=== PATIENT | male | born 1955 | race Caucasian/White ===

== ENCOUNTER 2018-04-27 14:40 | Inpatient (IN) ==
[2018-04-27] MEDS ORDERED: NON-FORMULARY MEDICATION 1 EACH EACH (Oxycodone Hcl 10 MG) PO PRN (19:19)
[2018-04-27] MEDS: rOPINIRole 1 MG TABLET PO SCH (20:51)
[2018-04-27] MEDS: Gabapentin 300 MG CAPSULE PO SCH (20:51)
[2018-04-27] MEDS: traZODone 50 MG TABLET PO SCH (20:52)
[2018-04-28] MEDS: *HR* OxyCODONE Immed Rel 5 MG TABLET PO PRN ×4 (03:38→20:19)
[2018-04-28] MEDS ORDERED: Levothyroxine 25 MCG TABLET PO SCH (06:00)
[2018-04-28 06:09] LABS: Basophils % 0.5 %; Eosinophils # 0.2 K/mcL (0.0-0.6); Hematocrit 29.3 % (37.5-50.1); Hemoglobin 9.2 g/dL (12.9-16.9); Immature Granulocytes % 0.5 % (0-4); Lymphocytes # 1.3 K/mcL (0.6-4.6); Lymphocytes % 31.1 %; Mean Corpuscular HGB Conc 31.4 g/dL (31.6-35.5); Mean Corpuscular Volume 95.4 fL (83.0-100.0); Mean Platelet Volume 11.3 fL (9.4-12.4); Monocytes # 0.3 K/mcL (0.0-1.3); Monocytes % 7.4 %; Neutrophils # 2.4 K/mcL (1.6-8.9); Red Blood Count 3.07 M/mcL (4.19-5.50); Red Cell Distribution Width 14.2 % (11.5-14.5); Segmented Neutrophils % 56.5 %
[2018-04-28 06:29] LABS: Platelet Count 91 K/mcL (140-400)
[2018-04-28 06:31] LABS: INR 1.1; Prothrombin Time 11.3 Seconds (9.4-12.1)
[2018-04-28 06:33] LABS: Activated Partial Thrombo Time 31.3 Seconds (26.0-36.0)
[2018-04-28 06:48] LABS: BUN/Creatinine Ratio 21 (6-26); Blood Urea Nitrogen 24 mg/dL (8-23); Carbon Dioxide 26 mEq/L (23-29); Chloride 104 mEq/L (98-107); Glucose 140 mg/dL (70-105); Osmolality,Calculated 286 (280-300); Potassium 4.8 mEq/L (3.5-5.1); Sodium 135 mEq/L (136-145); eGFR For African Americans > 60 (> 60); eGFR For Non-African Americans > 60 (> 60)
[2018-04-28] MEDS: Gabapentin 300 MG CAPSULE PO SCH ×3 (09:05→20:18)
[2018-04-28] MEDS: Aspirin 81 MG TAB.CHEW PO SCH (09:05)
--- NOTE | 2018-04-28 15:25 | Internal Med History&Physical ---
Date of Encounter: 04/28/18 Time of Encounter: 14:45 Assessment and Plan (1) Pancytopenia Current visit: No Status: Acute Suspect secondary to cirrhosis with history of ITP also. We will monitor blood indices. (2) CKD (chronic kidney disease) stage 3, GFR 30-59 ml/min Current visit: No Status: Chronic Monitor renal indices. (3) Weakness Current visit: No Status: Acute He will have PT and OT evaluations with ongoing interventions. (4) HTN (hypertension) Current visit: No Status: Chronic Diet controlled Qualifiers: Hypertension type: essential hypertension Qualified Code(s): I10 - Essential (primary) hypertension (5) Hypothyroid Current visit: No Status: Chronic TSH was elevated at 5.364 on 10/16/2017. Will recheck in a.m. Qualifiers: Hypothyroidism type: unspecified Qualified Code(s): E03.9 - Hypothyroidism , unspecified Internal Medicine - H&P: HPI Chief complaint: Pneumonia, weakness Admitted From: Hospital to Hospital Transfer Plans for Post Hospital Care: Home History of present illness: Mr. Carrillo is a 62 year old male who was transferred to [facility] swing bed 2017 after hospitalization at [facility] April 22- after admission for chest pain. CT was ruled out. Regadenoson EST showed nondiagnostic EKG findings and negative perfusion imaging for ischemia or infarct. He was treated for pneumonia. Following stabilization he was discharged to [facility] swing bed for ongoing care needs. Cardiovascular history is significant for intermittent hypertension. He does not use antihypertensive medication unless systolic blood pressure exceeds 160. He has known ASHD status post CT with three-vessel CABG surgery 1989. Most recent heart cath was September 2017. The LMCA was free of disease. There was 100% percent stenosis in the mid LAD, 40% stenosis in the proximal LAD, 20% stenosis in the mid circumflex, and 100% stenosis in the mid RCA with left-to- right collaterals. The AGEE graft to proximal LAD was patent. No further intervention was done. Echocardiogram 04/25/2018 showed LVEF of 50-55% with mild LV diastolic dysfunction with E/A ratio 0.8. There was mild tricuspid regurgitation. He denies DVT or pulmonary embolus. He had a pacemaker placed 1992. Respiratory history is significant for him being a lifelong nonsmoker. He denies known chronic lung disease. Past Med Surg Social Fam HX - Past Medical History Medical history: cirrhosis, CHF, coronary artery disease, CVA, diabetes, GERD, hypertension, myocardial infarction, thyroid disease, other Additional medical history: ITP Psychiatric history: no psych history - Past Surgical History Surgical History: appendectomy, cholecystectomy, coronary bypass (CABG), orthopedic, other, pacemaker/AICD Additional surgical history: back surgery, Left Hip replacement - Social History Smoking Status: Never smoker Smokeless Tobacco Status: No Alcohol use: none Drug use: none - Family History Father Family Member Ethnicity: Non- Living Status: Hx Family Cardiac Disorders: Yes (CT, Bypass) Brother Family Member Ethnicity: Non- Living Status: Hx Family Cardiac Disorders: Yes (CT) Mother Family Member Ethnicity: Non- Living Status: Hx Family Cardiac Disorders: No Internal Medicine - H&P: Meds Levothyroxine [Synthroid] 50 mcg PO QAM 07/28/15 [History] Omeprazole [PriLOSEC] 40 mg PO BID 07/28/15 [History] Promethazine [Phenergan] 25 mg PO TID PRN 03/23/16 [History] Tizanidine HCl 4 mg PO QPM 11/22/16 [History] Aspirin 81 mg PO DAILY #30 tab.chew 11/25/16 [Rx] Atorvastatin [Lipitor] 40 mg PO HS 07/06/17 [History] Ropinirole HCl [Requip] 4 mg PO HS 08/20/17 [History] Trazodone HCl 100 - 200 mg PO HS 08/20/17 [History] Gabapentin [Neurontin] 900 mg PO TID #30 capsule 10/21/17 [Rx] OxyCODONE Immed Rel [Roxicodone 10 MG] 10 mg PO QID PRN 04/22/18 [History] Pantoprazole Sodium 40 mg PO DAILY 04/22/18 [History] OxyCODONE Immed Rel [Roxicodone 10 MG] 10 mg PO QID PRN 2 Days #8 tab 04/27/18 [ Rx] Tizanidine HCl [Zanaflex] 4 mg PO QPM #2 cap 04/27/18 [Rx] traZODone [TraZODone] 100 mg PO HS #4 tablet 04/27/18 [Rx] 3 Allergy/AdvReac Type Severity Reaction Status Date / Time morphine Allergy Intermediate Hives Verified 09/29/17 10:53 codeine Allergy Mild Itching Verified 09/29/17 10:53 Penicillins AdvReac Severe COMA Verified 09/29/17 10:53 nitroglycerin AdvReac Mild LOW BLOOD Verified 09/29/17 10:53 PRESSURE NITRATES Allergy Mild Itching Uncoded 09/29/17 10:53 NUBAIN Allergy Mild Itching Uncoded 09/29/17 10:53 All Systems PM: A 10-system review of systems was performed and is negative for pertinent findings except as documented above in the HPI. Review of systems: Gen.: He states his weight is increased from 185 pounds to 230 pounds in the past year because of edema. Cardiovascular: As per history of present illness Respiratory: As per history of present illness GI: He has had slow GI bleed with EGD and colonoscopy not locating the source. Capsule endoscopy has been discussed but not performed. He has a diagnosis of cirrhosis of the liver due to medication (name unknown). He has had cholecystectomy. He denies disorders of his exocrine pancreas. : He has minimally functioning left kidney. He has been diagnosed with chronic kidney disease. He denies other prostate or bladder disorders. Neurologic: He reports 3 "strokes" in the past with most recent one in 2017. He denies any permanent neurologic deficit. He states he has had seizures intermittently for several years with most recent one approximately one month ago. He does not take antiseizure medication. Endocrine: He was diagnosed with diabetes at age 14. He reports he has not taken medication for this for approximately 30 years and his hemoglobin A1c is acceptable. He has history of hyperlipidemia but no known thyroid disease. Hematology/oncology: He states he was diagnosed with ITP several years ago. He has not had splenectomy and has not followed closely with hematology/oncology for a few years. He has anemia. He denies internal malignancies. Psychiatric: He denies anxiety depression or other mental health issues [place] skeletal: He has had left total shoulder replacement several years ago. He had left total hip replacement October 2016 but has residual hip pain. He denies gout or other bone joint or muscle disorders. - Constitutional Vitals: Temp Pulse Resp BP Pulse Ox 97.6 F 50 16 110/58 98 04/28/18 06:41 04/28/18 06:41 04/28/18 06:41 04/28/18 06:41 04/28/18 06:41 Exam: Gen.: He is a well-developed overweighed male sitting a chair at bedside who appears in no acute distress HEENT: Head is atraumatic and normocephalic. Eyes: EOMI. There is no scleral icterus. Mouth: Mucosa is moist. Neck: Supple and nontender. There is no thyromegaly or adenopathy noted. Heart: Regular without murmurs gallops or ectopics Lungs: No wheezes or crackles are heard. Abdomen: Soft and nontender. No masses or guarding are noted. Extremities: There is no cyanosis edema or clubbing noted. Dorsalis pedis and posterior tibial pulses are trace to 1+ palpable bilaterally. Neurologic: Mental status: He is talkative and a good historian. Cranial nerves : Smile is symmetric. Forehead wrinkles bilaterally. Tongue protrudes midline. EOMI. Motor: There is no pronator drift. He has left foot drop. Cerebellar: Finger to nose is performed well with the right arm and fair with the left arm. He appears to have some apraxia with left attempt. Skin: Warm and dry Internal Med - H&P Results - Labs CBC & Chem 7: 04/28/18 04:46 04/28/18 04:46 Labs: Short CBC 04/28/18 Range/Units 04:46 WBC 4.2 L (4.3-11.1) K/mcL Hgb 9.2 L (12.9-16.9) g/dL Hct 29.3 L (37.5-50.1) % Plt Count 91 L (140-400) K/mcL Neutrophils # 2.4 (1.6-8.9) K/mcL BMP 04/28/18 04:46 Sodium 135 L Potassium 4.8 Chloride 104 Carbon Dioxide 26 BUN 24 H Creatinine 1.16 Glucose 140 H Calcium 9.0
[2018-04-28] MEDS: tiZANidine 4 MG TABLET PO SCH (17:10)
[2018-04-28] MEDS: traZODone 50 MG TABLET PO SCH (20:18)
[2018-04-28] MEDS: rOPINIRole 1 MG TABLET PO SCH (20:18)
[2018-04-29] MEDS: *HR* OxyCODONE Immed Rel 5 MG TABLET PO PRN ×4 (04:46→21:50)
[2018-04-29] MEDS: Levothyroxine 25 MCG TABLET PO SCH (06:50)
[2018-04-29] MEDS: Aspirin 81 MG TAB.CHEW PO SCH (09:32)
[2018-04-29] MEDS: Gabapentin 300 MG CAPSULE PO SCH ×3 (09:32→21:43)
[2018-04-29] MEDS: Ondansetron ODT 4 MG TAB.RAPDIS SL PRN ×2 (11:23→21:50)
--- NOTE | 2018-04-29 14:46 | Internal Med Progress Note ---
Date of Encounter: 04/29/18 Time of Encounter: 14:35 - Assessment and plan (1) Pancytopenia Current Visit: No Status: Acute Assessment and plan: April 29. Hemoglobin decreased to 9.2. WBC and platelet count slightly higher than previous check. Will continue to monitor. (2) CKD (chronic kidney disease) stage 3, GFR 30-59 ml/min Current Visit: No Status: Chronic Assessment and plan: April 29. Continue to monitor renal indices. (3) Weakness Current Visit: No Status: Acute Assessment and plan: April 29. Continue therapy intervention. (4) HTN (hypertension) Current Visit: No Status: Chronic Assessment and plan: April 29. Diet controlled. Qualifiers: Hypertension type: essential hypertension Qualified Code(s): I10 - Essential (primary) hypertension (5) Hypothyroid Current Visit: No Status: Chronic Assessment and plan: April 29. Recheck TSH with next blood draw. Qualifiers: Hypothyroidism type: unspecified Qualified Code(s): E03.9 - Hypothyroidism , unspecified (6) Osteoarthritis of left hip Current Visit: No Status: Chronic Assessment and plan: April 29. Will add BenGay and Lidoderm patch. Continue oral analgesics. Qualifiers: Osteoarthritis type: unspecified Qualified Code(s): M16.12 - Unilateral primary osteoarthritis, left hip - Subjective Interval history: April 29. He complains of left hip pain worsened with activity. He also feels he has palpable "liver nodules" when he feels his right upper quadrant with his left hand. - Constitutional Vitals: Temp Pulse Resp BP Pulse Ox 98.6 F 50 18 109/51 98 04/29/18 08:45 04/29/18 08:45 04/29/18 08:45 04/29/18 08:45 04/29/18 08:45 Exam: He is resting comfortably on the side of bed and appears in no acute distress. His affect is overall cheerful. I reviewed his medications and lab results. I reviewed September 2017 heart catheter and abdominal CT reports. Internal Medicine: Result - Labs CBC & Chem 7: 04/28/18 04:46 04/28/18 04:46 - ABG Interpretation ABG results: PT/INR, D-dimer PT 11.3 Seconds (9.4-12.1) 04/28/18 04:46 Consult Discharge Plan - Plan Referrals: Dm Kemp MD [Primary Care Provider] - 1 week
[2018-04-29] MEDS: Methyl Salicylate/Menthol 28 GM TUBE TP SCH (16:08)
[2018-04-29] MEDS: tiZANidine 4 MG TABLET PO SCH (17:49)
[2018-04-29] MEDS: rOPINIRole 1 MG TABLET PO SCH (21:43)
[2018-04-29] MEDS: traZODone 50 MG TABLET PO SCH (21:43)
[2018-04-30] MEDS: Levothyroxine 25 MCG TABLET PO SCH (06:45)
[2018-04-30] MEDS: Gabapentin 300 MG CAPSULE PO SCH ×3 (07:29→20:17)
[2018-04-30] MEDS: *HR* OxyCODONE Immed Rel 5 MG TABLET PO PRN ×3 (07:29→20:21)
[2018-04-30] MEDS: Aspirin 81 MG TAB.CHEW PO SCH (07:29)
[2018-04-30] MEDS: Methyl Salicylate/Menthol 28 GM TUBE TP SCH (07:30)
[2018-04-30] MEDS: Ondansetron ODT 4 MG TAB.RAPDIS SL PRN ×2 (11:43→20:22)
[2018-04-30] MEDS: tiZANidine 4 MG TABLET PO SCH (17:53)
[2018-04-30] MEDS: traZODone 50 MG TABLET PO SCH (20:17)
[2018-04-30] MEDS: rOPINIRole 1 MG TABLET PO SCH (20:17)
[2018-05-01] MEDS: *HR* OxyCODONE Immed Rel 5 MG TABLET PO PRN ×4 (04:37→23:56)
[2018-05-01] MEDS: Levothyroxine 25 MCG TABLET PO SCH (06:33)
[2018-05-01] MEDS: Gabapentin 300 MG CAPSULE PO SCH ×3 (07:20→20:09)
[2018-05-01] MEDS: Aspirin 81 MG TAB.CHEW PO SCH (07:21)
[2018-05-01] MEDS: Methyl Salicylate/Menthol 28 GM TUBE TP SCH (08:01)
[2018-05-01] MEDS: Ondansetron ODT 4 MG TAB.RAPDIS SL PRN (11:49)
[2018-05-01] MEDS: tiZANidine 4 MG TABLET PO SCH (17:36)
[2018-05-01] MEDS: traZODone 50 MG TABLET PO SCH (20:08)
[2018-05-01] MEDS: rOPINIRole 1 MG TABLET PO SCH (20:11)
[2018-05-02 05:13] LABS: Basophils % 0.4 %; Eosinophils # 0.1 K/mcL (0.0-0.6); Eosinophils % 3.1 %; Hematocrit 27.9 % (37.5-50.1); Hemoglobin 8.7 g/dL (12.9-16.9); Immature Granulocytes % 0.4 % (0-4); Lymphocytes % 39.6 %; Mean Corpuscular HGB Conc 31.2 g/dL (31.6-35.5); Mean Corpuscular Hemoglobin 29.8 pg (28.0-33.3); Mean Corpuscular Volume 95.5 fL (83.0-100.0); Mean Platelet Volume 11.6 fL (9.4-12.4); Monocytes # 0.2 K/mcL (0.0-1.3); Monocytes % 6.7 %; Neutrophils # 1.3 K/mcL (1.6-8.9); Red Blood Count 2.92 M/mcL (4.19-5.50); Segmented Neutrophils % 49.8 %
[2018-05-02 05:14] LABS: Platelet Count 86 K/mcL (140-400)
[2018-05-02 05:32] LABS: BUN/Creatinine Ratio 22 (6-26); Blood Urea Nitrogen 32 mg/dL (8-23); Calcium 8.6 mg/dL (8.6-10.3); Carbon Dioxide 26 mEq/L (23-29); Chloride 105 mEq/L (98-107); Glucose 160 mg/dL (70-105); Osmolality,Calculated 292 (280-300); Potassium 4.9 mEq/L (3.5-5.1); Sodium 136 mEq/L (136-145); eGFR For African Americans > 60 (> 60); eGFR For Non-African Americans 50 (> 60)
[2018-05-02] MEDS: Levothyroxine 25 MCG TABLET PO SCH (06:56)
[2018-05-02 08:53] LABS: % Iron Saturation 13 % (20-55); Iron 40 mcg/dL (65-175); Transferrin 216 mg/dL (203-362)
[2018-05-02 09:11] LABS: Ferritin 27 ng/mL (20-250)
[2018-05-02 09:16] LABS: Folate 10.8 ng/mL (3.0-16.0)
[2018-05-02] MEDS: Aspirin 81 MG TAB.CHEW PO SCH (09:28)
[2018-05-02] MEDS: Gabapentin 300 MG CAPSULE PO SCH ×3 (09:28→20:08)
[2018-05-02] MEDS: Methyl Salicylate/Menthol 28 GM TUBE TP SCH (09:30)
[2018-05-02] MEDS: *HR* OxyCODONE Immed Rel 5 MG TABLET PO PRN ×2 (11:31→17:57)
--- NOTE | 2018-05-02 11:52 | Internal Med Progress Note ---
Date of Encounter: 05/02/18 Time of Encounter: 11:45 - Assessment and plan (1) Pancytopenia Current Visit: No Status: Acute Assessment and plan: April 29. Hemoglobin decreased to 9.2. WBC and platelet count slightly higher than previous check. Will continue to monitor. (2) CKD (chronic kidney disease) stage 3, GFR 30-59 ml/min Current Visit: No Status: Chronic Assessment and plan: April 29. Continue to monitor renal indices. (3) Weakness Current Visit: No Status: Acute Assessment and plan: April 29. Continue therapy intervention. (4) HTN (hypertension) Current Visit: No Status: Chronic Assessment and plan: April 29. Diet controlled. Qualifiers: Hypertension type: essential hypertension Qualified Code(s): I10 - Essential (primary) hypertension (5) Hypothyroid Current Visit: No Status: Chronic Assessment and plan: April 29. Recheck TSH with next blood draw. May 02. TSH elevated at 10.810. Will increase Synthroid dose. Qualifiers: Hypothyroidism type: unspecified Qualified Code(s): E03.9 - Hypothyroidism , unspecified (6) Osteoarthritis of left hip Current Visit: No Status: Chronic Assessment and plan: April 29. Will add BenGay and Lidoderm patch. Continue oral analgesics. Qualifiers: Osteoarthritis type: unspecified Qualified Code(s): M16.12 - Unilateral primary osteoarthritis, left hip - Subjective Interval history: April 29. He complains of left hip pain worsened with activity. He also feels he has palpable "liver nodules" when he feels his right upper quadrant with his left hand. May 02. He has no new complaints. - Constitutional Vitals: Temp Pulse Resp BP Pulse Ox 97.6 F 60 16 119/75 96 05/02/18 06:31 05/02/18 06:31 05/02/18 06:31 05/02/18 06:31 05/02/18 06:31 Exam: He is sitting in a chair at bedside resting comfortably eating lunch. His affect is bright and cheerful. I reviewed his medications. I discussed pertinent lab results with him. Internal Medicine: Result - Labs CBC & Chem 7: 05/02/18 04:25 05/02/18 04:25 Labs: Short CBC 05/02/18 Range/Units 04:25 WBC 2.6 L (4.3-11.1) K/mcL Hgb 8.7 L (12.9-16.9) g/dL Hct 27.9 L (37.5-50.1) % Plt Count 86 L (140-400) K/mcL Neutrophils # 1.3 L (1.6-8.9) K/mcL BMP 05/02/18 04:25 Sodium 136 Potassium 4.9 Chloride 105 Carbon Dioxide 26 BUN 32 H Creatinine 1.43 H Glucose 160 H Calcium 8.6 - ABG Interpretation ABG results: PT/INR, D-dimer PT 11.3 Seconds (9.4-12.1) 04/28/18 04:46 Consult Discharge Plan - Plan Referrals: Dm Kemp MD [Primary Care Provider] - 1 week
[2018-05-02] MEDS: tiZANidine 4 MG TABLET PO SCH (17:55)
[2018-05-02] MEDS: traZODone 50 MG TABLET PO SCH (20:07)
[2018-05-02] MEDS: rOPINIRole 1 MG TABLET PO SCH (20:07)
[2018-05-03] MEDS: *HR* OxyCODONE Immed Rel 5 MG TABLET PO PRN ×3 (00:45→14:34)
[2018-05-03 07:24] VITALS: BP 120/44
[2018-05-03] MEDS: Gabapentin 300 MG CAPSULE PO SCH ×2 (10:05→14:33)
[2018-05-03] MEDS: Aspirin 81 MG TAB.CHEW PO SCH (10:05)
[2018-05-03] MEDS: Methyl Salicylate/Menthol 28 GM TUBE TP SCH (10:05)
--- NOTE | 2018-05-03 16:47 | Discharge Summary ---
Date of Encounter: 05/03/18 Time of Encounter: 16:35 - Discharge Diagnosis (1) Pancytopenia Priority: Primary Status: Acute (2) CKD (chronic kidney disease) stage 3, GFR 30-59 ml/min Priority: Secondary Status: Chronic (3) Weakness Priority: Secondary Status: Acute (4) HTN (hypertension) Priority: Secondary Status: Chronic Qualifiers: Hypertension type: essential hypertension Qualified Code(s): I10 - Essential (primary) hypertension (5) Hypothyroid Priority: Secondary Status: Chronic Qualifiers: Hypothyroidism type: unspecified Qualified Code(s): E03.9 - Hypothyroidism , unspecified (6) Osteoarthritis of left hip Priority: Secondary Status: Chronic Qualifiers: Osteoarthritis type: unspecified Qualified Code(s): M16.12 - Unilateral primary osteoarthritis, left hip Hospital course: Mr. Carrillo is a 62 year old male who was transferred to [facility] swing bed 2017 after hospitalization at [facility] April 22- after admission for chest pain. [place] was ruled out. Regadenoson EST showed nondiagnostic EKG findings and negative perfusion imaging for ischemia or infarct. He was treated for pneumonia. Following stabilization he was discharged to [facility] swing bed for ongoing care needs. Initial orders were written by the discharging physician at [facility]. I saw him on April 28 and performed a swing bed history and physical. He had physical therapy and occupational therapy evaluations with ongoing interventions. He made satisfactory progress. BenGay and Lidoderm patch were applied to the left hip for complaints of pain. He had significant decrease in pain level. He can use OTC BenGay as needed for recurrent pain. TSH returned elevated at 10.0810. Synthroid dose was increased to 100 g daily. There were no other new problems and on May 03 he wished to be discharged home. He will follow with his PCP within 1 week. - Time Spent with Patient Total time spent providing and/or coordinating discharge services: - Discharge Medications Prescriptions: Levothyroxine [Synthroid] 100 mcg PO QAM@0630 #30 tablet Home Medications: Omeprazole [PriLOSEC] 40 mg PO BID 07/28/15 [History] Promethazine [Phenergan] 25 mg PO TID PRN 03/23/16 [History] Tizanidine HCl 4 mg PO QPM 11/22/16 [History] Aspirin 81 mg PO DAILY #30 tab.chew 11/25/16 [Rx] Atorvastatin [Lipitor] 40 mg PO HS 07/06/17 [History] Ropinirole HCl [Requip] 4 mg PO HS 08/20/17 [History] Trazodone HCl 100 - 200 mg PO HS 08/20/17 [History] Gabapentin [Neurontin] 900 mg PO TID #30 capsule 10/21/17 [Rx] OxyCODONE Immed Rel [Roxicodone 10 MG] 10 mg PO QID PRN 04/22/18 [History] Pantoprazole Sodium 40 mg PO DAILY 04/22/18 [History] OxyCODONE Immed Rel [Roxicodone 10 MG] 10 mg PO QID PRN 2 Days #8 tab 04/27/18 [ Rx] Tizanidine HCl [Zanaflex] 4 mg PO QPM #2 cap 04/27/18 [Rx] traZODone [TraZODone] 100 mg PO HS #4 tablet 04/27/18 [Rx] Levothyroxine [Synthroid] 100 mcg PO QAM@0630 #30 tablet 05/03/18 [Rx] Allergies/Adverse Reactions: 3 Allergy/AdvReac Type Severity Reaction Status Date / Time morphine Allergy Intermediate Hives Verified 09/29/17 10:53 codeine Allergy Mild Itching Verified 09/29/17 10:53 Penicillins AdvReac Severe COMA Verified 09/29/17 10:53 nitroglycerin AdvReac Mild LOW BLOOD Verified 09/29/17 10:53 PRESSURE NITRATES Allergy Mild Itching Uncoded 09/29/17 10:53 NUBAIN Allergy Mild Itching Uncoded 09/29/17 10:53 Date of admission: 04/27/18 18:46 Primary care physician: Dm Kemp MD Consults: 04/27/18 19:05 Consult to Occupational Therapy [CONS] Routine Comment: eval, develop, and implement POC Reason for Consult: eval, develop, and implement POC Does patient have active BEDREST order?: No Is patient medically & hemodynamically stable?: Yes Consult to Physical Therapy [CONS] Routine Comment: eval, develop, and implement POC Reason for Consult: eval, develop, and implement POC Does patient have active BEDREST order?: No Is patient medically & hemodynamically stable?: Yes Consult to Orthophotography Technician [CONS] Routine Reason for SW Consult: possible HH upon discharge - Constitutional Vitals: Temp Pulse Resp BP Pulse Ox 97.6 F 55 18 120/44 98 05/03/18 06:00 05/03/18 06:00 05/03/18 06:00 05/03/18 06:00 05/03/18 06:00 - Patient Status Disposition: Home Health Service - Discharge Instructions Follow Up With: Dm Kemp MD [Primary Care Provider] - 1 week - Diet and Activity Activity: as per physical therapy Diet: advance to your usual diet
--- NOTE | 2018-05-03 16:53 | Physician Discharge Referral ---
Home Health/Hosp Referral Info Transfer to: Home Health Attending Provider: Sanket Provider in Charge Post Discharge: PCP Lily) - Diagnosis (1) Pancytopenia Priority: Primary Status: Acute (2) CKD (chronic kidney disease) stage 3, GFR 30-59 ml/min Priority: Secondary Status: Chronic (3) Weakness Priority: Secondary Status: Acute (4) HTN (hypertension) Priority: Secondary Status: Chronic (5) Hypothyroid Priority: Secondary Status: Chronic (6) Osteoarthritis of left hip Priority: Secondary Status: Chronic - Respiratory Orders Smoking Cessation: Smoking cessation has been advised. For more information, call the [place] Tobacco Quit Line at 5-190-JSEK-NOW. - Diet/Nutrition Diet/Nutrition Orders: Cardiac - Activity Activity Orders: Walker - Services Needed Following services are medically necessary services: Nursing, Home Health Aide, Physical Therapy, Occupational Therapy - Transfer Medications Prescriptions: Levothyroxine [Synthroid] 100 mcg PO QAM@0630 #30 tablet Home Medications: Omeprazole [PriLOSEC] 40 mg PO BID 07/28/15 [History] Promethazine [Phenergan] 25 mg PO TID PRN 03/23/16 [History] Tizanidine HCl 4 mg PO QPM 11/22/16 [History] Aspirin 81 mg PO DAILY #30 tab.chew 11/25/16 [Rx] Atorvastatin [Lipitor] 40 mg PO HS 07/06/17 [History] Ropinirole HCl [Requip] 4 mg PO HS 08/20/17 [History] Trazodone HCl 100 - 200 mg PO HS 08/20/17 [History] Gabapentin [Neurontin] 900 mg PO TID #30 capsule 10/21/17 [Rx] OxyCODONE Immed Rel [Roxicodone 10 MG] 10 mg PO QID PRN 04/22/18 [History] Pantoprazole Sodium 40 mg PO DAILY 04/22/18 [History] OxyCODONE Immed Rel [Roxicodone 10 MG] 10 mg PO QID PRN 2 Days #8 tab 04/27/18 [ Rx] Tizanidine HCl [Zanaflex] 4 mg PO QPM #2 cap 04/27/18 [Rx] traZODone [TraZODone] 100 mg PO HS #4 tablet 04/27/18 [Rx] Levothyroxine [Synthroid] 100 mcg PO QAM@0630 #30 tablet 05/03/18 [Rx] Allergies/Adverse Reactions: 3 Allergy/AdvReac Type Severity Reaction Status Date / Time morphine Allergy Intermediate Hives Verified 09/29/17 10:53 codeine Allergy Mild Itching Verified 09/29/17 10:53 Penicillins AdvReac Severe COMA Verified 09/29/17 10:53 nitroglycerin AdvReac Mild LOW BLOOD Verified 09/29/17 10:53 PRESSURE NITRATES Allergy Mild Itching Uncoded 09/29/17 10:53 NUBAIN Allergy Mild Itching Uncoded 09/29/17 10:53 Certification: Further, I certify that my clinical findings support that this patient is homebound (i.e. absences from home require considerable and taxing effort and are for medical reasons or yazidism services or infrequently or short duration when for other reasons) because: Homebound Reason: Leaving home requires considerable and taxing effort due to condition (Impaired mobility secondary to left hip pain and weakness.) Attestation: My signature below is to certify that this patient is under my care and that I, or nurse practitioner, or a physician's library assistant working with me, has a face-to -face encounter with this patient.
== END 2018-05-03 17:00 | disposition home health service (06) | DRG 194 ==
LOC: INPPIK 18:46
PROVIDERS: ADMIT Internal Medicine; ATTEND Internal Medicine